=== PATIENT | male | born 1955 | race Caucasian/White ===

== ENCOUNTER 2019-02-04 15:46 | Emergency (ER) | payer OTHER ==
[~2019-02-04] VITALS: Ht 170.2 cm; Wt 77.1 kg
[~2019-02-04 15:46] MED LIST: METF500T PO
[2019-02-04 15:50] VITALS: BP 95/61
--- NOTE | 2019-02-04 15:52 | NUR ---
TO ED 11 WITH STEADY GAIT.
[2019-02-04] MEDS ORDERED: NACL 0.9% 1,000 ML IV SCH (16:07)
--- NOTE | 2019-02-04 16:14 | NUR ---
PT COMPAINTS CONSTIPATION AND ABDOMINAL BLOATING PAIN FOR FOUR DAYS. DENIES N/V/D; SKIN IS PINK/WARM/DRY; AAOX4 WITH EVEN AND STEADY GAIT; HR EVEN AND REGULAR; PT DENIES ANY FEVER, CP, SOB, OR COUGH AT THIS TIME; PATIENT STATES PAIN OF 8/10 AT THIS TIME; VSS; PATIENT POSITIONED FOR COMFORT; HOB ELEVATED; BEDRAILS UP X2; BED DOWN. ER MD MADE AWARE OF PT STATUS.
--- NOTE | 2019-02-04 16:32 | NUR ---
IV HAS BEEN ESTABLISHED ON PT'S RIGHT ANTICUBITAL SITE, 20G.
--- NOTE | 2019-02-04 16:42 | NUR ---
PT TAKEN OFF THE UNIT FOR CT VIA HOSPITAL BED
[2019-02-04 16:48] LABS: BASOPHILS % (AUTO) 0.2 % (0.0-2.0); HEMATOCRIT 34.5 % (36-52); HEMOGLOBIN 11.3 g/dL (12.0-18.0); LYMPHOCYTES # (AUTO) 0.3 K/uL (2.0-11.5); LYMPHOCYTES % (AUTO) 2.3 % (20.5-51.1); MEAN CORPUSCULAR HEMOGLOBIN 29 pg (27-31); MEAN CORPUSCULAR HGB CONC 33 g/dL (33-37); MEAN CORPUSCULAR VOLUME 87.3 fL (80-94); MONOCYTES # (AUTO) 0.1 K/uL (0.8-1.0); NEUTROPHILS # (AUTO) 10.9 K/uL (1.8-7.7); NEUTROPHILS % (AUTO) 96.5 % (42.2-75.2); PLATELET COUNT (AUTO) 163 K/uL (140-450); RED BLOOD CELL COUNT(AUTO) 3.95 MIL/uL (4.20-6.10); WHITE BLOOD COUNT (AUTO) 11.2 K/uL (4.8-10.8)
[2019-02-04 17:18] LABS: PROTHROMBIN TIME 11.2 secs (10.8-13.4)
[2019-02-04] MEDS ORDERED: NACL 0.9% 1,000 ML IV ONE (17:35)
[2019-02-04] MEDS ORDERED: MORPHINE SULFATE 2 MG/ML SYR IVP ONE (17:40)
[2019-02-04 17:51] LABS: ALBUMIN 2.5 g/dL (3.4-5.0); ANION GAP 12.5 (8-16); CARBON DIOXIDE 26.7 mmol/L (21-32); CREATININE 0.8 mg/dL (0.7-1.3); POTASSIUM 4.2 mmol/L (3.5-5.1)
[2019-02-04 18:15] VITALS: BP 116/64
--- NOTE | 2019-02-04 18:16 | NUR ---
PT DOES NOT HAVE URINE.
--- NOTE | 2019-02-04 18:18 | NUR ---
Patient discharged with v/s stable. Written and verbal after care instructions given and explained. Patient alert, oriented and verbalized understanding of instructions. Ambulatory with steady gait. All questions addressed prior to discharge. ID band removed. Patient advised to follow up with PMD. Rx of Mineral Oil, Senokot, Lactulose given. Patient educated on indication of medication including possible reaction and side effects. Opportunity to ask questions provided and answered.
== END 2019-02-04 18:18 | disposition home or self-care (01) ==
LOC: MED 15:46
DX: R14.0 Abdominal distension (gaseous) (principal); R63.0 Anorexia; K59.00 Constipation, unspecified; E11.9 Type 2 diabetes mellitus without complications; R94.31 Abnormal electrocardiogram [ECG] [EKG]; R79.1 Abnormal coagulation profile; Z85.07 Personal history of malignant neoplasm of pancreas; Z79.84 Long term (current) use of oral hypoglycemic drugs
CPT/HCPCS: 36415; 71045; 74176; 80053; 83605; 83690; 83880; 84484; 85025; 85610; 85730; 87040; 93005; 96374; 99284; J2270; J7030; Q0092